=== PATIENT | male | born 1980 | race Caucasian/White ===

== ENCOUNTER 2017-03-30 15:44 | Emergency (ER) | payer OTHER ==
[~2017-03-30] VITALS: Ht 185.4 cm; Wt 94.3 kg
[2017-03-30 15:56] VITALS: BP 163/107
== END 2017-03-30 16:46 | disposition home or self-care (01) ==
LOC: ER 15:53
DX: S16.1XXA Strain of muscle, fascia and tendon at neck level, initial encounter (principal); Y08.89XA Assault by other specified means, initial encounter; Y93.89 Activity, other specified; Y99.8 Other external cause status; Y92.89 Other specified places as the place of occurrence of the external cause